=== PATIENT | female | born 1995 | race African-American/Black ===

== ENCOUNTER 2016-06-29 23:27 | Emergency (ER) | payer OTHER ==
[~2016-06-29] VITALS: Ht 167.6 cm; Wt 51.7 kg
[~2016-06-29 23:27] MED LIST: AMOXICILLIN500 MG ORAL; CIPRO500 MG PO; IBUPROFEN600 MG ORAL; NITROFURANTOIN100 M2 ORAL; PHENAZOPYRIDIN100 MG ORAL; PHENAZOPYRIDIN100 MG PO
[2016-06-29] MEDS ORDERED: NKM (23:39)
[2016-06-30] MEDS ORDERED: Norco 5mg/325mg tab ORAL ONE
[2016-06-30] MEDS ORDERED: NORCO 5-325 TA1 EACH ORAL (01:30)
[2016-06-30] MEDS ORDERED: PENICILLIN V P500 MG ORAL (01:30)
[2016-06-30 02:29] VITALS: BP 115/81
[2016-06-30 02:30] VITALS: BP 115/81
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
== END 2016-06-30 02:30 | disposition home or self-care (01) ==
LOC: EMR 23:55
DX: S02.609A Fracture of mandible, unspecified, initial encounter for closed fracture (principal); Y04.2XXA Assault by strike against or bumped into by another person, initial encounter; Y92.89 Other specified places as the place of occurrence of the external cause; Y99.8 Other external cause status
CPT/HCPCS: 70450; 70486; 81025; 99284

== ENCOUNTER 2016-09-19 21:01 | Emergency (ER) | payer OTHER ==
[~2016-09-19] VITALS: Ht 167.6 cm; Wt 47.2 kg
[~2016-09-19 21:01] MED LIST changes: +NKM; +NORCO 5-325 TA1 EACH ORAL; +PENICILLIN V P500 MG ORAL
[2016-09-19 21:40] VITALS: BP 108/74
[2016-09-19] MEDS ORDERED: DOXYCYCLINE MO100 MG ORAL (21:40)
--- NOTE | 2016-09-19 21:43 | Emergency Room Report ---
History of Present Illness General Chief Complaint: Sore Throat Source: Patient Present Illness HPI This is 19-year-old female presented after increased right eye swelling as well as sore throat. Patient also reports having some swelling to her bellybutton. She reports having some purulent drainage. Patient denied any fever. She had gradual onset of symptoms. Patient stated that she had been having increased dysuria. Patient states that she wanted STD check. Allergies: Coded Allergies: No Known Allergies (Unverified , 06/29/16) Patient History Last Menstrual Period: 2 months ago Reviewed Nursing Documentation: PMH: Agreed, PSxH: Agreed Nursing Documentation-PM Past Medical History: No Stated History Review of Systems All Other Systems: negative except mentioned in HPI Physical Exam Vital Signs Date Time Temp Pulse Resp B/P Pulse Ox O2 Delivery O2 Flow Rate FiO2 09/19/16 21:21 98.2 84 16 107/75 99 Room Air General Appearance: well appearing, no apparent distress, alert, GCS 15 Head: normocephalic, atraumatic Eyes: bilateral eye other - right eyelid redness ENT: hearing grossly normal, normal voice Neck: full range of motion, supple Respiratory: lungs clear, no respiratory distress, speaking full sentences Gastrointestinal: normal bowel sounds, non tender, soft, no mass, other - abdominal abscess to lower abdomen Musculoskeletal: normal inspection, back normal, no calf tenderness Neurologic: normal gait Psychiatric: mood/affect normal Skin: no rash Medical Decision Making Diagnostic Impression: Primary Impression: Abdominal abscess Additional Impression: Pharyngitis ER Course Patient presented for skin rash, and sore throat. Differential diagnosis included was not limited to abscess, cellulitis, folliculitis, Fourniere's gangrene, Patient's benign exam and does not appear to require any further imaging or laboratory testing at this time. The patient will be empirically treated for STDs. Patient was given Rocephin IM. She is given prescription for doxycycline that she does have an abdominal wall abscess. Said spontaneously began draining.The patient is advised to follow up with primary care doctor in 1-2 days. Patient is advised to return if any worsening condition or if any changes in status that are concerning. Last Vital Signs Date Time Temp Pulse Resp B/P Pulse Ox O2 Delivery O2 Flow Rate FiO2 09/19/16 21:21 98.2 84 16 107/75 99 Room Air Status: improved Disposition: HOME, SELF-CARE Condition: Stable Scripts Doxycycline Monohydrate* (DOXYCYCLINE MONOHYDRATE*) 100 Mg Capsule 100 MG ORAL Q12H, #20 CAP 0 Refills Prov: Dre Hough 09/19/16 Patient Instructions: Dre Calabrese Sep 19, 2016 21:43
[2016-09-19 22:10] VITALS: BP 109/72
[2016-09-19 22:15] VITALS: BP 110/72
[2016-09-19] MEDS ORDERED: Lidocaine 1% MPF 10mg/ml 5ml INJ ONE (22:15)
[2016-09-19 22:20] VITALS: BP 110/72
== END 2016-09-19 22:20 | disposition home or self-care (01) ==
LOC: EMR 21:42
DX: J02.9 Acute pharyngitis, unspecified (principal); L02.211 Cutaneous abscess of abdominal wall
CPT/HCPCS: 81025; 96372; 99283; J0696

== ENCOUNTER 2017-11-14 12:09 | Emergency (ER) | payer OTHER ==
[~2017-11-14] VITALS: Ht 167.6 cm; Wt 55.8 kg
[~2017-11-14 12:09] MED LIST changes: +DOXYCYCLINE MO100 MG ORAL
[2017-11-14] MEDS ORDERED: NS 1000ml 1,700 ML IVLG ONE (13:00)
[2017-11-14] MEDS ORDERED: Azithromycin 250mg tab ORAL ONE (13:00)
[2017-11-14] MEDS ORDERED: cefTRIAXone 1 GM in NS 55 ML IVPB ONE (13:00)
[2017-11-14 13:58] VITALS: BP 118/80
[2017-11-14 14:14] LABS: ANION GAP 9 mmol/L (5-15); BLOOD UREA NITROGEN 13 mg/dL (7-18); CALCIUM 9.4 MG/DL (8.5-10.1); CARBON DIOXIDE 26 MMOL/L (21-32); CHLORIDE 100 MMOL/L (98-107); POTASSIUM 3.5 MMOL/L (3.5-5.1); SODIUM 135 MMOL/L (136-145)
[2017-11-14 14:16] LABS: HEMOGLOBIN 14.3 G/DL (12.0-16.0); MEAN CORPUSCULAR VOLUME 89 FL (80-99); PLATELET COUNT 252 K/UL (150-450); RED BLOOD COUNT 4.85 M/UL (4.20-5.40); RED CELL DISTRIBUTION WIDTH 11.1 % (11.6-14.8); WHITE BLOOD COUNT 16.4 K/UL (4.8-10.8)
[2017-11-14 14:18] LABS: ALANINE AMINOTRANSFERASE 15 U/L (12-78); ALBUMIN 3.7 G/DL (3.4-5.0); ALBUMIN/GLOBULIN RATIO 0.9 (1.0-2.7); ALKALINE PHOSPHATASE 73 U/L (46-116); ASPARTATE AMINO TRANSFERASE 12 U/L (15-37); BILIRUBIN,TOTAL 0.6 MG/DL (0.2-1.0); CREATINE KINASE 51 U/L (26-308)
[2017-11-14 14:20] LABS: APPEARANCE,URINE SLIGHTLY CLOUDY; BILIRUBIN, URINE NEGATIVE (NEGATIVE); GLUCOSE, URINE (UA) NEGATIVE (NEGATIVE); KETONES,URINE 4+ (NEGATIVE); LEUKOCYTE ESTERASE ,URINE 1+ (NEGATIVE); NITRITE,URINE NEGATIVE (NEGATIVE); PH,URINE 6 (4.5-8.0); PROTEIN,URINE 2+ (NEGATIVE); UROBILINOGEN,URINE 4 MG/DL (0.0-1.0)
[2017-11-14 14:27] LABS: COLOR,URINE YELLOW
--- NOTE | 2017-11-14 15:34 | Emergency Room Report ---
History of Present Illness General Chief Complaint: Fever Source: Patient Present Illness HPI This patient states that she was sent a culture result from [facility] that she was positive for gonorrhea. She states that last month she went in for control pills and was tested. The reason she presents emergency department primarily because she has had a sore throat and fever for the past 2 days. She denies abdominal pain. She has had nausea. She also complains of chills and body aches. She denies chest pain or shortness of breath. She denies abnormal vaginal discharge. She has no other complaints. Allergies: Coded Allergies: No Known Allergies (Unverified , 06/29/16) Patient History Past Medical History: none Social History: Denies: smoking, alcohol use, drug use Last Menstrual Period: 10/31/17 Reviewed Nursing Documentation: PMH: Agreed; PSxH: Agreed Nursing Documentation-PMH Past Medical History: No Stated History Review of Systems All Other Systems: negative except mentioned in HPI Physical Exam Vital Signs Date Time Temp Pulse Resp B/P (MAP) Pulse Ox O2 Delivery O2 Flow Rate FiO2 11/14/17 12:19 100.6 118 18 118/80 100 Room Air 100.6 Sp02 EP Interpretation: reviewed, normal General Appearance: no apparent distress, alert, GCS 15, non-toxic Head: normocephalic, atraumatic Eyes: bilateral eye normal inspection, bilateral eye PERRL ENT: hearing grossly normal, no angioedema, normal voice, pharyngeal erythema - +white exudate. Neck: full range of motion, supple/symm/no masses Respiratory: chest non-tender, lungs clear, normal breath sounds, no respiratory distress, no retraction, no accessory muscle use, speaking full sentences Cardiovascular #1: regular rate, rhythm, no edema Gastrointestinal: normal bowel sounds, non tender, soft, non-distended, no guarding, no rebound Rectal: deferred Musculoskeletal: back normal, gait/station normal, normal range of motion, non- tender Neurologic: alert, oriented x3, responsive, motor strength/tone normal, sensory intact, speech normal Psychiatric: judgement/insight normal, memory normal, mood/affect normal, no suicidal/homicidal ideation Skin: normal color, no rash, warm/dry, well hydrated Medical Decision Making Diagnostic Impression: Primary Impression: Gonorrhea Additional Impressions: Fever Pharyngitis ER Course An concerning this patient could have gonococcal pharyngitis and the febrile with disseminated gonorrhea. She has a high fever and an elevated white blood cell count. I'm concerned about bacteremia in this patient. She is given IV Rocephin and oral azithromycin to treat for both gonorrhea and chlamydia. The patient also was vomiting here in the emergency department. I did not feel comfortable discharging this patient home for concern of deterioration in inability to keep down antibiotics. Therefore, this patient is admitted for IV antibiotics and close monitoring. Laboratory Tests Test 11/14/17 13:40 White Blood Count 16.4 K/UL (4.8-10.8) H Red Blood Count 4.85 M/UL (4.20-5.40) Hemoglobin 14.3 G/DL (12.0-16.0) Hematocrit 43.0 % (37.0-47.0) Mean Corpuscular Volume 89 FL (80-99) Mean Corpuscular Hemoglobin 29.6 PG (27.0-31.0) Mean Corpuscular Hemoglobin Concent 33.4 G/DL (32.0-36.0) Red Cell Distribution Width 11.1 % (11.6-14.8) L Platelet Count 252 K/UL (150-450) Mean Platelet Volume 5.6 FL (6.5-10.1) L Neutrophils (%) (Auto) % (45.0-75.0) Lymphocytes (%) (Auto) % (20.0-45.0) Monocytes (%) (Auto) % (1.0-10.0) Eosinophils (%) (Auto) % (0.0-3.0) Basophils (%) (Auto) % (0.0-2.0) Differential Total Cells Counted 100 Neutrophils % (Manual) 88 % (45-75) H Lymphocytes % (Manual) 7 % (20-45) L Monocytes % (Manual) 5 % (1-10) Eosinophils % (Manual) 0 % (0-3) Basophils % (Manual) 0 % (0-2) Band Neutrophils 0 % (0-8) Platelet Estimate Adequate Platelet Morphology Normal Red Blood Cell Morphology Normal Urine Color Yellow Urine Appearance Slightly cloudy Urine pH 6 (4.5-8.0) Urine Specific [place] 1.020 (1.005-1.035) Urine Protein 2+ (NEGATIVE) H Urine Glucose (UA) Negative (NEGATIVE) Urine Ketones 4+ (NEGATIVE) H Urine Blood 4+ (NEGATIVE) H Urine Nitrite Negative (NEGATIVE) Urine Bilirubin Negative (NEGATIVE) Urine Urobilinogen 4 MG/DL (0.0-1.0) H Urine Leukocyte Esterase 1+ (NEGATIVE) H Urine RBC 15-20 /HPF (0 - 2) H Urine WBC 5-10 /HPF (0 - 2) H Urine Squamous Epithelial Cells Many /LPF (NONE/OCC) H Urine Bacteria Few /HPF (NONE) Sodium Level 135 MMOL/L (136-145) L Potassium Level 3.5 MMOL/L (3.5-5.1) Chloride Level 100 MMOL/L (98-107) Carbon Dioxide Level 26 MMOL/L (21-32) Anion Gap 9 mmol/L (5-15) Blood Urea Nitrogen 13 mg/dL (7-18) Creatinine 1.0 MG/DL (0.55-1.30) Estimate Glomerular Filtration Rate > 60 mL/min (>60) Glucose Level 101 MG/DL (74-106) Lactic Acid Level 1.10 mmol/L (0.4-2.0) Calcium Level 9.4 MG/DL (8.5-10.1) Total Bilirubin 0.6 MG/DL (0.2-1.0) Aspartate Amino Transferase (AST) 12 U/L (15-37) L Alanine Aminotransferase (ALT) 15 U/L (12-78) Alkaline Phosphatase 73 U/L (46-116) Total Creatine Kinase 51 U/L (26-308) Total Protein 7.8 G/DL (6.4-8.2) Albumin 3.7 G/DL (3.4-5.0) Globulin 4.1 g/dL Albumin/Globulin Ratio 0.9 (1.0-2.7) L Last Vital Signs Date Time Temp Pulse Resp B/P (MAP) Pulse Ox O2 Delivery O2 Flow Rate FiO2 11/14/17 14:00 99.7 11/14/17 13:58 88 18 118/80 100 Room Air Disposition: ADMITTED INPATIENT Condition: Serious Referrals: [facility],REFERRING (PCP) Aida Salazar DO Nov 14, 2017 15:34
[2017-11-14 19:29] VITALS: BP 118/80
== END 2017-11-14 19:00 | disposition short-term general hospital (02) ==
LOC: EMR 12:55
DX: A54.9 Gonococcal infection, unspecified (principal); R50.9 Fever, unspecified; J02.9 Acute pharyngitis, unspecified
CPT/HCPCS: 36415; 80053; 81003; 82550; 83605; 85007; 85025; 87040; 87070; 87181; 96365; 96375; 99284; J0696; J2405; Q0144

== ENCOUNTER 2019-02-10 17:00 | Emergency (ER) | payer OTHER ==
[~2019-02-10] VITALS: Ht 167.6 cm; Wt 58.1 kg
--- NOTE | 2019-02-10 17:36 | Emergency Room Report ---
History of Present Illness General Chief Complaint: Upper Respiratory Illness Source: Patient Present Illness HPI 24-year-old female with no significant past medical history here complaining of 2 weeks of cough and congestion. Patient reports that her symptoms started with sore throat, now has progressed to passive congestion and phlegm production when coughing. Also complains of minimal wheezing when coughing. Denies any chest pain, pain radiation, palpitation, shortness of breath, abdominal pain, nausea vomiting, fever and chills at this time. Has not taken medication for symptom relief. Denies tobacco smoke, drug use, marijuana smoke. Denies recent travel, headache, dizziness, photophobia, neck stiffness. Allergies: Coded Allergies: No Known Allergies (Unverified , 06/29/16) Patient History Past Medical History: see triage record Past Surgical History: unable to obtain Pertinent Family History: none Last Menstrual Period: 12/15 Now: No - ON BORTH CONTROL PILLS Immunizations: UTD Reviewed Nursing Documentation: PMH: Agreed; PSxH: Agreed Nursing Documentation-PMH Past Medical History: No History, Except For Hx Asthma: Yes Review of Systems All Other Systems: negative except mentioned in HPI Physical Exam Vital Signs Date Time Temp Pulse Resp B/P (MAP) Pulse Ox O2 Delivery O2 Flow Rate FiO2 02/10/19 17:11 98.2 95 20 110/67 (81) 96 Room Air Sp02 EP Interpretation: reviewed, normal General Appearance: no apparent distress, alert, GCS 15, non-toxic Head: normocephalic, atraumatic Eyes: bilateral eye normal inspection, bilateral eye PERRL ENT: EOM grossly intact, no angioedema, normal voice, TMs + canals normal, moist mucus membranes, nasal congestion, pharyngeal erythema Neck: full range of motion, supple, supple/symm/no masses Respiratory: chest non-tender, lungs clear, normal breath sounds, no rhonchi, no respiratory distress, no retraction, no wheezing, speaking full sentences Cardiovascular #1: regular rate, rhythm, no edema, no murmur Gastrointestinal: non tender, soft, no mass Genitourinary: no CVA tenderness Musculoskeletal: back normal, normal range of motion Neurologic: alert, motor strength/tone normal, oriented x3, sensory intact, responsive, speech normal Psychiatric: judgement/insight normal, memory normal, mood/affect normal, no suicidal/homicidal ideation Skin: no rash, normal color, warm/dry, normal turgor Lymphatic: no adenopathy Medical Decision Making PA Attestation All my diagnosis and treatment plans were reviewed ad discussed with my supervising physician Dr. Villarreal Diagnostic Impression: Primary Impression: Atypical pneumonia ER Course 24-year-old female with no significant past medical history here complaining of 2 weeks of cough and congestion. Patient reports that her symptoms started with sore throat, now has progressed to passive congestion and phlegm production when coughing. Also complains of minimal wheezing when coughing. Denies any chest pain, pain radiation, palpitation, shortness of breath, abdominal pain, nausea vomiting, fever and chills at this time. Has not taken medication for symptom relief. Denies tobacco smoke, drug use, marijuana smoke. Denies recent travel, headache, dizziness, photophobia, neck stiffness. Ddx considered but are not limited to: bronchitis, PNA, URI viral, bacterial bronchitis, atypical pneumonia Vital signs: are WNL, pt. is afebrile H&PE are most consistent with: Atypical pneumonia ORDERS: Azithromycin, Phenergan, albuterol inhaler ED INTERVENTIONS: None required at this time. DISCHARGE: At this time pt. is stable for d/c to home. Will provide printed patient care instructions, and any necessary prescriptions. Care plan and follow up instructions have been discussed with the patient prior to discharge. Patient follow-up with her primary care provider, if worsening symptoms return to the emergency room. At this time the chest x-ray lungs are clear to auscultation and patient has no risk factors for developing pneumonia versus other etiologies smoke. Denies drug use. Last Vital Signs Date Time Temp Pulse Resp B/P (MAP) Pulse Ox O2 Delivery O2 Flow Rate FiO2 02/10/19 17:11 98.2 95 20 110/67 (81) 96 Room Air Disposition: HOME, SELF-CARE Condition: Stable Scripts Albuterol Sulfate (VENTOLIN HFA) 18 Gm Hfa.aer.ad 2 PUFFS INH EVERY 6 HOURS, #18 GM 0 Refills Prov: Jennifer Dan 02/10/19 Promethazine Hcl (PROMETHAZINE HCL*) 6.25 Mg/5 Ml Syrup 5 ML ORAL Q6H, #120 ML 0 Refills Prov: Jennifer Dan 02/10/19 Azithromycin* (ZITHROMAX*) 250 Mg Tablet 250 MG ORAL DAILY, #6 TAB 0 Refills Take two tables once daily for 1 day, then one tablet once daily for 4 days. Prov: Jennifer Dan 02/10/19 Patient Instructions: Upper Respiratory Infection, Adult Additional Instructions: Take medication as directed, follow-up with your primary care provider, if worsening symptoms return to the emergency room Jennifer Dan Feb 10, 2019 17:36
[2019-02-10] MEDS ORDERED: ZITHROMAX250 MG ORAL (17:39)
[2019-02-10] MEDS ORDERED: VENTOLIN HFA18 GM INH (17:39)
[2019-02-10] MEDS ORDERED: PROMETHAZI6.25 MG/1 ORAL (17:39)
[2019-02-10 18:00] VITALS: BP 110/67
--- NOTE | 2019-02-10 18:00 | NUR ---
ER DISCHARGE NOTE: Patient is cleared to be discharged per ERMD, pt is aox4, on room air, with stable vital signs. pt was given dc and prescription instructions, pt was able to verbalize understanding, pt is able to ambulate with steady gait. pt took all belongings.
== END 2019-02-10 18:00 | disposition home or self-care (01) ==
LOC: EMR 17:30
DX: J18.9 Pneumonia, unspecified organism (principal); Z79.3 Long term (current) use of hormonal contraceptives
CPT/HCPCS: 99282

== ENCOUNTER 2019-02-18 17:14 | Emergency (ER) | payer OTHER ==
[~2019-02-18] VITALS: Ht 167.6 cm; Wt 58.1 kg
[~2019-02-18 17:14] MED LIST changes: +PROMETHAZI6.25 MG/1 ORAL; +VENTOLIN HFA18 GM INH; +ZITHROMAX250 MG ORAL
--- NOTE | 2019-02-18 17:54 | NUR ---
ED Nurse Note: Pt walked in from home c/o productive cough with yellow phlegm and congestion x 1 week. Respirations are even and unlabored. Vital signs stable as documented.
[2019-02-18 17:56] VITALS: BP 124/77
[2019-02-18] MEDS ORDERED: Lidocaine 1% MPF 10mg/ml 5ml INJ ONE (18:00)
[2019-02-18] MEDS ORDERED: Azithromycin 250mg tab ORAL ONE (18:00)
[2019-02-18 18:16] VITALS: BP 124/77
--- NOTE | 2019-02-18 18:24 | NUR ---
Tri matias in EDM - 02/18/19 at 1826 by KRYSTLE ED Nurse Note:pt with meds given aware of precautions for follow up care and partner treatment
--- NOTE | 2019-02-18 18:26 | NUR ---
ED Nurse Note:pt medicated for further treatment as she states she doesnt feel like first dose of abx effective in curing PNA. pt without active coughing in ed and no fever at home.
--- NOTE | 2019-02-18 18:27 | Emergency Room Report ---
History of Present Illness General Chief Complaint: Upper Respiratory Illness Source: Patient Present Illness HPI 24-year-old female with no significant past medical history here complaining of continuation of her cough after she was evaluated by me 10 days ago. Patient reports that the cough still lingering however is not as powerful. Denies any sore throat and fever and chills at this time. Reports that she has not follow- up with primary care physician. Reports that she continues to smoke marijuana. Denies abdominal pain, nausea vomiting, urinary symptoms. Also reports that she would like to be treated for both chlamydia and gonorrhea as she was exposed. Patient complains of vaginal discharge. Does not want to be tested and only wants to get treatment. Denies urinary frequency and urgency. Allergies: Coded Allergies: No Known Allergies (Unverified , 06/29/16) Patient History Past Medical History: see triage record Past Surgical History: unable to obtain Pertinent Family History: none Last Menstrual Period: 11/11/18 Now: No Immunizations: UTD Reviewed Nursing Documentation: PMH: Agreed; PSxH: Agreed Nursing Documentation-PMH Past Medical History: No History, Except For Hx Asthma: Yes Review of Systems All Other Systems: negative except mentioned in HPI Physical Exam Vital Signs Date Time Temp Pulse Resp B/P (MAP) Pulse Ox O2 Delivery O2 Flow Rate FiO2 02/18/19 17:38 98.1 68 18 124/77 (93) 95 Room Air Sp02 EP Interpretation: reviewed, normal General Appearance: no apparent distress, alert, GCS 15, non-toxic Head: normocephalic, atraumatic Eyes: bilateral eye normal inspection, bilateral eye PERRL ENT: hearing grossly normal, normal pharynx, no angioedema, normal voice Neck: full range of motion, supple, thyroid normal, no meningismus, supple/symm /no masses Respiratory: chest non-tender, lungs clear, normal breath sounds, no rhonchi, no respiratory distress, no retraction, no wheezing, speaking full sentences Cardiovascular #1: regular rate, rhythm, no edema, no murmur Gastrointestinal: normal bowel sounds, non tender, soft, non-distended, no guarding, no rebound Rectal: deferred Genitourinary: no CVA tenderness Musculoskeletal: back normal, no calf tenderness Neurologic: alert, motor strength/tone normal, oriented x3, sensory intact, responsive, speech normal Psychiatric: judgement/insight normal, memory normal, mood/affect normal, no suicidal/homicidal ideation Skin: no rash Lymphatic: no adenopathy Medical Decision Making PA Attestation Diagnosis and treatment plans were reviewed and discussed with my supervising physician Dr. Davis Diagnostic Impression: Primary Impression: URI (upper respiratory infection) Additional Impression: Exposure to STD ER Course 24-year-old female with no significant past medical history here complaining of continuation of her cough after she was evaluated by me 10 days ago. Patient reports that the cough still lingering however is not as powerful. Denies any sore throat and fever and chills at this time. Reports that she has not follow- up with primary care physician. Reports that she continues to smoke marijuana. Denies abdominal pain, nausea vomiting, urinary symptoms. Also reports that she would like to be treated for both chlamydia and gonorrhea as she was exposed. Patient complains of vaginal discharge. Does not want to be tested and only wants to get treatment. Denies urinary frequency and urgency. Ddx considered but are not limited to: strep pharyngitis, URI, tonsillitis, peritonsillar abscess, influenza Vital signs: are WNL, pt. is afebrile H&PE are most consistent with: Upper respiratory infection, exposure to STD ORDERS: Phenergan, albuterol, prednisone ED INTERVENTIONS: Rocephin, azithromycin DISCHARGE: At this time pt. is stable for d/c to home. Will provide printed patient care instructions, and any necessary prescriptions. Care plan and follow up instructions have been discussed with the patient prior to discharge. Patient to follow-up with her primary care provider, if cough continues to be bothersome it is considered chronic cough and to be evaluated by primary care physician. Treatment was given for chlamydia and gonorrhea. Patient also get tested at [facility] Last Vital Signs Date Time Temp Pulse Resp B/P (MAP) Pulse Ox O2 Delivery O2 Flow Rate FiO2 02/18/19 18:16 98.1 79 18 124/77 95 Room Air Disposition: HOME, SELF-CARE Condition: Stable Scripts Prednisone* (PREDNISONE*) 20 Mg Tablet 40 MG ORAL DAILY for 5 Days, #10 TAB Prov: Jennifer Dan 02/18/19 Albuterol Sulfate (VENTOLIN HFA) 18 Gm Hfa.aer.ad 2 PUFFS INH EVERY 6 HOURS, #18 GM 0 Refills Prov: Jennifer Dan 02/18/19 Promethazine Hcl (PROMETHAZINE HCL*) 6.25 Mg/5 Ml Syrup 5 ML ORAL Q6H, #120 ML 0 Refills Prov: Jennifer Dan 02/18/19 Patient Instructions: Upper Respiratory Infection, Adult Additional Instructions: Take medication as directed, follow-up with your primary care provider, if worsening symptoms return to the emergency room Jennifer Dan Feb 18, 2019 18:26
[2019-02-18] MEDS ORDERED: VENTOLIN HFA18 GM INH (18:28)
[2019-02-18] MEDS ORDERED: PROMETHAZI6.25 MG/1 ORAL (18:28)
[2019-02-18] MEDS ORDERED: PREDNISONE20 MG ORAL (18:28)
--- NOTE | 2019-02-18 18:51 | NUR ---
ER DISCHARGE NOTE: Patient is cleared to be discharged per ERMD, pt is aox4, on room air, with stable vital signs as documented. pt was given dc and prescription instructions, and she was able to verbalize understanding, pt id band removed. pt is able to ambulate with steady gait. pt took all belongings.
[2019-02-18 18:55] VITALS: BP 124/72
== END 2019-02-18 18:55 | disposition home or self-care (01) ==
LOC: EMR 18:17
DX: J06.9 Acute upper respiratory infection, unspecified (principal); Z20.2 Contact with and (suspected) exposure to infections with a predominantly sexual mode of transmission; F12.90 Cannabis use, unspecified, uncomplicated
CPT/HCPCS: 96372; 96374; J0696; Q0144; Z7502; 99284